=== PATIENT | female | born 1980 | race Caucasian/White ===

== ENCOUNTER 2016-07-20 15:00 | Emergency (ER) | payer OTHER ==
--- NOTE | ~2016-07-20 | ER ---
PATIENT'S NAME: MARCELLA ST [facility] AGE: 36 Y [address] ROOM: [place] [address] LOCATION: ED ADMIT DATE: 07/20/2016 ER/Outpatient Report DISCHARGE DATE: 07/20/2016 FAMILY PHYSICIAN: Isaiah Patel MD ATTENDING PHYSICIAN: Eugenio Mercedes Time of Arrival: 1500 hours. Time of Evaluation: 1500 hours. CHIEF COMPLAINT: Chest pain. HISTORY OF PRESENT ILLNESS: The patient is a 36-year-old female, who presents to the emergency department today with a chief complaint of chest pain. She reports this started at 10:30 a.m. this morning while getting ready for work. It is in the center of her chest, goes across her chest. There is no radiation to her arm or neck. There is some mild shortness of breath with this as well. No nausea or vomiting. No weakness, no diaphoresis. The patient denies any history of DVT or PE. Denies any ripping or tearing sensation. It is not maximal in onset. Her pain is currently 0/10 in severity. PAST MEDICAL HISTORY: Depression and anxiety. PAST SURGICAL HISTORY: Tonsillectomy and mass on the right ribs. SOCIAL HISTORY: The patient denies any tobacco use. Reports occasional alcohol use. Denies any illicit drug use. ALLERGIES: BACTRIM. MEDICATIONS: Please see list. REVIEW OF SYSTEMS: All systems are reviewed by myself and are negative with the exception of those discussed in HPI and past medical history. PHYSICAL EXAMINATION: VITAL SIGNS: Weight 145 kg, blood pressure 157/70, pulse 80, respiratory rate 20, temperature 98.7, and oxygen saturation 97% on room air. PATIENT'S NAME: MARCELLA ST [facility] AGE: 36 Y [address] ROOM: [place] [address] LOCATION: [facility] ADMIT DATE: 07/20/2016 ER/Outpatient Report DISCHARGE DATE: 07/20/2016 FAMILY PHYSICIAN: Isaiah Patel MD ATTENDING PHYSICIAN: Eugenio Mercedes GENERAL: The patient is a 36-year-old female, appears stated age. Well- developed, well-nourished, obese, in no acute distress. HEENT: Head: Normocephalic, atraumatic. Pupils are equal, round, and reactive to light. Oropharynx is clear. NECK: Supple. There is no nuchal rigidity. CARDIOVASCULAR: Regular rate and rhythm. No murmurs, rubs, or gallops. LUNGS: Clear to auscultation bilaterally. No wheezes, rales, or rhonchi. ABDOMEN: Soft, nontender, and nondistended. No rebound, rigidity, or guarding. MUSCULOSKELETAL: The patient moves all 4 extremities. Ambulates with steady gait. Skin is warm and dry. There is no pretibial edema noted. There is no swelling in the calf, no tenderness to palpation in the calf. 2/4 pulses equal in bilateral upper lower extremities. LABORATORY DATA AND X-RAYS: Obtained. EKG was obtained and is interpreted by myself, shows sinus rhythm with a rate of 92, normal axis, normal interval. No ST elevation, ST depression, or T-wave inversions. CBC is normal except for hemoglobin 12.5. Coags are normal. D-dimer is 0.52. Mag is normal. Cardiac enzymes are normal. CMP is unremarkable except for a CO2 of 21. LFTs are normal. Chest x-ray, 2 views is obtained and is interpreted by myself, shows no acute cardiopulmonary process. IMPRESSION: 1. Chest pain, unclear etiology. 2. Initial visit. EMERGENCY DEPARTMENT COURSE: The patient was brought back to the examination room. Seen and evaluated by myself. IV is established. Laboratory analysis and imaging are obtained as described above. The patient currently has no symptoms at this time. I have discussed the results of the laboratory analysis and imaging with the patient. She once again has no symptoms. Her D-dimer is just very slightly elevated, however the patient is not hypoxic and has heart rates in the 80s. I certainly feel that she is low liklihood for a large compromising pulmonary embolism at this time. I do feel she is safe for further outpatient evaluation at this time. I have discussed with her instructions to follow up with primary care in 2-3 days for re-evaluation. We have discussed the different options in the [place] area for followup. I have discussed return- to-care instructions including worsening symptoms or any other concerns to return to the emergency department as soon as possible. The patient is agreeable without further questions at this time. DISPOSITION: The patient was discharged to home in good condition. PATIENT'S NAME: MARCELLA ST [facility] AGE: 36 Y [address] ROOM: [place] [address] LOCATION: [facility] ADMIT DATE: 07/20/2016 ER/Outpatient Report DISCHARGE DATE: 07/20/2016 FAMILY PHYSICIAN: Isaiah Patel MD ATTENDING PHYSICIAN: Eugenio Mercedes DO DACIA JONES/florencio /[id number] d: 07/20/16 2343 t: 07/21/16 0638, OUTPATIENT REPORT
[2016-07-20 15:32] LABS: BASOPHIL # 0.1 K/uL (0.0-0.2); BASOPHIL % 0.4 %; EOSINOPHIL # 0.2 K/uL (0.0-0.5); EOSINOPHIL % 1.2 %; HEMOGLOBIN 12.4 g/dL (11.0-15.0); IMMATURE GRANULOCYTE # 0.1 K/uL (0.0-0.3); IMMATURE GRANULOCYTE % 1.1 %; LYMPHOCYTE # 3.5 K/uL (0.8-4.0); LYMPHOCYTE % 28.1 %; MCH 26.3 pg (27.0-34.0); MCHC 32.6 gm/dL (32.0-36.5); MCV 80.5 fl (83.0-98.0); MONOCYTE # 0.6 K/uL (0.0-1.0); MONOCYTE % 4.7 %; NEUTROPHIL % 64.5 %; NRBC % 0 /100WBC (0-0.00); PLATELET COUNT 256 K/uL (150-450); RBC 4.72 M/uL (3.50-5.50); WBC 12.5 K/uL (4.0-11.0)
[2016-07-20 15:44] LABS: PROTIME 9.9 SECONDS (9.6-11.1); PTT 26 SECONDS (25-32)
[2016-07-20 15:54] LABS: ALBUMIN 3.1 gm/dL (3.5-5.0); ALK PHOS 53 IU/L (33-138); ALT 19 IU/L (12-78); ANION GAP 15.9 (10.0-19.0); AST 19 IU/L (10-40); BLOOD UREA NITROGEN 9 mg/dL (6-24); CALCIUM 8.6 mg/dL (8.5-10.5); CHLORIDE 108 mMol/L (96-110); CO2 21 mMol/L (22-32); CPK 80 IU/L (21-215); CREATININE 0.9 mg/dL (0.5-1.1); ESTIMATED GFR (MDRD EQUATION) > 60; POTASSIUM 3.9 mMol/L (3.7-5.1); SODIUM 141 mMol/L (135-145); TOTAL BILIRUBIN 0.3 mg/dL (0.0-1.5); TOTAL PROTEIN 7.3 g/dL (6.0-8.4)
== END 2016-07-20 16:32 | disposition disaster alternative care site (69) ==
LOC: GMED 15:00
PROVIDERS: Emergency Medicine
DX: R07.9 Chest pain, unspecified (principal); F32.9 Major depressive disorder, single episode, unspecified; F41.9 Anxiety disorder, unspecified; Z90.89 Acquired absence of other organs; Z88.1 Allergy status to other antibiotic agents; Z79.899 Other long term (current) drug therapy